=== PATIENT | male | born 1945 | race Caucasian/White ===

== ENCOUNTER 2024-03-18 12:37 | Outpatient (OUT) | payer OTHER, SELFPAY ==
[2024-03-18] MEDS: ALBUTEROL SULFATE 2.5 MG/3 ML VIAL NEB IH (13:30)
== END 2024-03-18 12:38 | disposition home or self-care (01) ==
LOC: CARD 12:42
DX: R91.8 Other nonspecific abnormal finding of lung field (principal)
CPT/HCPCS: 94060